=== PATIENT | male | born 1995 | race Caucasian/White ===

== ENCOUNTER 2025-09-16 12:36 | Emergency (ER) | payer OTHER ==
[~2025-09-16] VITALS: Ht 177.8 cm; Wt 100.0 kg
[2025-09-16] MEDS: ONDANSETRON 4MG/2ML VIAL IV ONE (13:18)
[2025-09-16] MEDS: NS (Normal Saline) 0.9% 1,000 ML IV ONE (13:18)
[2025-09-16] MEDS: KETOROLAC 30 MG/ML 1 ML VIAL IV ONE (13:19)
[2025-09-16 13:34] LABS: BASO # 0.0 10^3/uL (0.0-0.2); BASO % 0.3 % (0.0-1.0); EOS # 0.5 10^3/uL (0.0-0.5); EOS % 5.2 % (0.0-3.0); LYMPH # 2.6 10^3/uL (1.5-5.0); LYMPH % 29.9 % (24.0-44.0); MONO # 0.7 10^3/uL (0.0-0.8); MONO % 7.8 % (2.0-8.0); NEUTROPHILS # 4.8 10^3/uL (1.5-8.5); NEUTROPHILS % 56.3 % (36.0-66.0); PLATELET COUNT, AUTOMATED 238 10^3/uL (150-450)
[2025-09-16 13:35] LABS: KETONE, URINE AUTO RFX NEGATIVE (NEGATIVE); LEUKOCYTE ESTERASE UR AUTO RFX NEGATIVE (NEGATIVE); NITRITE, URINE AUTO RFX NEGATIVE (NEGATIVE); RBC, URINE AUTO RFX 0 /HPF (0-3); SQUAM EPITHELIAL CELL UR AURFX 0 /HPF (0-6); WBC, URINE AUTO RFX 1 /HPF (0-3)
[2025-09-16 13:56] LABS: ALT/SGPT 39 U/L (7.0-40); AST/SGOT 34 U/L (<34); CALCIUM LEVEL 9.4 MG/DL (8.5-10.1); CARBON DIOXIDE LEVEL 25 MMOL/L (20-31); CHLORIDE LEVEL 106 MMOL/L (98-107); CREATININE FOR GFR 0.71 MG/DL (0.70-1.30); GLOMERULAR FILTRATION RATE > 90.0 (>60); POTASSIUM SERUM 4.1 MMOL/L (3.5-5.1); SODIUM LEVEL 142 MMOL/L (136-145)
[2025-09-16] MEDS ORDERED: ONDA-282 PO (14:34)
[2025-09-16 14:42] VITALS: BP 138/79; TEMP 97.2; O2SAT 100
== END 2025-09-16 14:44 | disposition home or self-care (01) ==
LOC: M ED 12:36
DX: A09 Infectious gastroenteritis and colitis, unspecified (principal); R11.2 Nausea with vomiting, unspecified; Z79.899 Other long term (current) drug therapy
CPT/HCPCS: 74176; 80048; 80076; 81001; 83690; 85025; 87389; 96361; 96374; 96375; 99284; J1885; J2405